=== PATIENT | female | born 1985 | race Caucasian/White ===

== ENCOUNTER 2016-09-24 10:03 | Emergency (ER) | payer OTHER ==
[~2016-09-24] VITALS: Ht 165.1 cm; Wt 113.0 kg
[~2016-09-24 10:03] MED LIST: ALBUTEROL SULF8.5 GM IH; AQUAPHOR OINTM105 GM TP; ATARAX,VISTARIL25 MG PO; BENTYL10 MG PO; CILOXAN 0.100 DROP/5 RIGHT EYE; ENDOCET 5-3251 EACH PO; ERYTHROMYCIN O3.5 GM RIGHT EYE; IBUPROFEN800 MG PO; LINDANE 1% PO; NAPROSYN500 MG PO; NAPROXEN500 MG PO; NOHOMEMEDS; POLYTRIM EYE DR10 ML RIGHT EYE; PREDNISONE20 MG PO; TYLENOL REGULA325 MG PO; ULTRAM50 MG PO; WESTCORT15 G1 TP; ZITHROMAX Z-PA250 MG PO; ZITHROMAX250 MG PO
[2016-09-24 10:31] VITALS: BP 114/73
[2016-09-24 10:44] LABS: EOSINOPHIL (%) 0.8 % (0-5); EOSINOPHIL COUNT 0.1 K/uL (0-0.3); HEMATOCRIT 40.1 % (36.0-46.0); IMMATURE GRANULOCYTE (%) 0.2 % (0.0-0.7); IMMATURE GRANULOCYTE COUNT 0.1 K/uL; MCH 29.6 PG (29.0-34.0); MCHC 34.4 G/DL (30.0-36.0); MCV 85.9 FL (83-99); MEAN PLAT.VOLUME 11.4 uM^3 (9.5-12.4); MONOCYTE (%) 6.1 % (3-12); MONOCYTE COUNT 0.4 K/uL (0-0.8); NEUTROPHIL (%) 61.2 % (45-76); NEUTROPHIL COUNT 3.8 K/uL (1.8-6.4); PLATELET COUNT 201 K/uL (156-360); RBC DIS.WIDTH-CV 13.3 % (11.8-14.6); RBC DIS.WIDTH-SD 40.8 % (39-53); RED BLOOD COUNT 4.67 M/uL (3.80-5.20); WHITE BLOOD COUNT 6.2 K/uL (4.1-10.2)
[2016-09-24 10:59] LABS: D-DIMER ELISA 0.27 mg/L FEU (< 0.57); INTER. NORMALIZED RATIO 1.1; PTT 27.7 (25-32)
[2016-09-24 11:01] VITALS: BP 119/76
[2016-09-24 11:04] LABS: CHLORIDE 107 mEq/L (99-109); SODIUM 141 mEq/L (136-147)
[2016-09-24 11:05] LABS: GLUCOSE 94 mg/dL (70-99); TROP-I INTERPRETATION NEGATIVE; TROPONIN-I < 0.01 ng/mL (0.0-0.30)
[2016-09-24 11:07] LABS: ANION GAP 11 MEQ/L (2-14)
[2016-09-24 11:09] LABS: GFR ESTIMATE (CALCULATED) > 59 mL/min/
[2016-09-24 11:10] LABS: UREA NITROGEN (BUN) 10 mg/dL (9-23)
[2016-09-24 11:31] VITALS: BP 106/64
[2016-09-24 12:01] VITALS: BP 99/61
[2016-09-24 12:31] VITALS: BP 114/78
[2016-09-24 13:07] LABS: TROP-I INTERPRETATION NEGATIVE; TROPONIN-I < 0.01 ng/mL (0.0-0.30)
[2016-09-24] MEDS ORDERED: MOTRIN800 MG PO (13:30)
[2016-09-24 13:50] VITALS: BP 100/66
== END 2016-09-24 13:50 | disposition home or self-care (01) ==
LOC: EME 10:03
PROVIDERS: Emergency Medicine
DX: R07.89 Other chest pain (principal)
CPT/HCPCS: 71010; 80048; 84484; 85025; 85379; 85610; 85730; 93005; 99281; 99284; J1885

== ENCOUNTER 2017-03-24 11:36 | Emergency (ER) | payer OTHER ==
[~2017-03-24] VITALS: Ht 165.1 cm; Wt 105.9 kg
[~2017-03-24 11:36] MED LIST changes: +MOTRIN800 MG PO
[2017-03-24] MEDS ORDERED: SKELAXIN800 MG PO (15:24)
[2017-03-24] MEDS ORDERED: NAPROSYN500 MG PO (15:24)
[2017-03-24] MEDS ORDERED: TRAMADOL HCL50 MG PO (15:24)
[2017-03-24 15:40] VITALS: BP 122/76
== END 2017-03-24 15:43 | disposition home or self-care (01) ==
LOC: EME 11:36
DX: S39.012A Strain of muscle, fascia and tendon of lower back, initial encounter (principal); X50.0XXA Overexertion from strenuous movement or load, initial encounter; Y93.F2 Activity, caregiving, lifting; J45.909 Unspecified asthma, uncomplicated
CPT/HCPCS: 72100; 99281; 99284; J1885